=== PATIENT | male | born 1985 | race Hispanic/Latino ===

== ENCOUNTER → 2024-04-14 | Outpatient (CLI) | LOC: M SOG 07:48 | PROVIDERS: ATTEND Orthopaedic Surgery | DX: M25.562 Pain in left knee (principal); M17.12 Unilateral primary osteoarthritis, left knee ==

== ENCOUNTER → 2024-04-21 | Outpatient (CLI) | payer OTHER | LOC: M PLAIMG 06:36 | PROVIDERS: ATTEND Orthopaedic Surgery | DX: M13.862 Other specified arthritis, left knee (principal); M25.562 Pain in left knee; Z98.890 Other specified postprocedural states ==

== ENCOUNTER → 2024-05-07 | Outpatient (RCR) | payer OTHER | LOC: M PT 04-28 09:53 | PROVIDERS: ATTEND Orthopaedic Surgery | DX: M13.862 Other specified arthritis, left knee (principal); M25.562 Pain in left knee; Z98.890 Other specified postprocedural states ==

== ENCOUNTER 2024-06-02 11:27 | Outpatient (RCR) | payer OTHER | END 2024-06-04 | LOC: M PT 11:27 | PROVIDERS: ATTEND Orthopaedic Surgery | DX: M13.862 Other specified arthritis, left knee (principal); M25.562 Pain in left knee; Z98.890 Other specified postprocedural states ==

== ENCOUNTER 2024-06-14 09:55 | Outpatient (RCR) | payer OTHER | END 2024-07-05 | LOC: M PT 09:55 | PROVIDERS: ATTEND Orthopaedic Surgery | DX: M13.862 Other specified arthritis, left knee (principal); M25.562 Pain in left knee ==